=== PATIENT | male | born 1965 ===

== ENCOUNTER 2022-06-05 11:26 | Outpatient (CLI) | payer OTHER ==
[~2022-06-05 11:26] MED LIST: ADULT LOW DOSE81 M1 PO; COZAAR25 MG PO; LIPI PO
== END 2022-06-05 14:29 | disposition home or self-care (01) ==
LOC: LAB 11:26
PROVIDERS: ATTEND Surgery
DX: Z20.822 Contact with and (suspected) exposure to COVID-19 (principal); Z03.818 Encounter for observation for suspected exposure to other biological agents ruled out

== ENCOUNTER 2022-06-17 06:00 | Day surgery (SDC) | payer OTHER ==
[~2022-06-17] VITALS: Ht 162.6 cm; Wt 68.0 kg
[2022-06-17] MEDS ORDERED: NEURONTIN300 MG PO (09:12)
[2022-06-17] MEDS ORDERED: PERCOCET 5-3251 EACH PO (09:13)
[2022-06-17] MEDS ORDERED: KETO10TA2 PO (09:14)
[2022-06-17] MEDS ORDERED: DERMOPLAST PAIN78 GM TOP (09:14)
== END 2022-06-17 16:45 | disposition home or self-care (01) ==
LOC: CIR.AMB 06:00
PROVIDERS: ATTEND Surgery
DX: K64.2 Third degree hemorrhoids (principal); Z20.822 Contact with and (suspected) exposure to COVID-19; I10 Essential (primary) hypertension; Z79.82 Long term (current) use of aspirin